=== PATIENT | female | born 1980 | race Caucasian/White ===

== ENCOUNTER 2018-01-18 10:06 | Emergency (ER) | payer MEDICAID ==
[2018-01-18 10:46] VITALS: BP 148/74
--- NOTE | 2018-01-18 10:59 | EDM.PDOC ---
ED HPI GENERAL MEDICAL PROBLEM - General Chief Complaint: Upper Extremity Injury/Pain Stated Complaint: HURT THUMB ON LEFT HAND Time Seen by Provider: 01/18/18 10:57 Source of Information: Reports: Patient History Limitations: Reports: No Limitations - History of Present Illness INITIAL COMMENTS - FREE TEXT/NARRATIVE: 37-year-old female smashed her left thumb near the proximal interphalangeal joint between a door and a heavy object yesterday. Today she has increased bruising and pain and wants to know if it's broken. No other injury. Onset: Sudden Duration: Day(s): (1-day-old) Location: Reports: Upper Extremity, Left Severity: Moderate Associated Symptoms: Reports: No Other Symptoms - Related Data Allergies Allergy/AdvReac Type Severity Reaction Status Date / Time No Known Allergies Allergy Verified 01/18/18 10:45 Home Meds: Home Meds Amphetamine/Dextroamphetamine [Adderall] 01/18/18 [History] [place] Carbonate 01/18/18 [History] Lurasidone HCl [Latuda] 01/18/18 [History] QUEtiapine [SEROquel] 01/18/18 [History] Past Medical History Psychiatric History: Reports: Anxiety, Bipolar, Depression - Past Surgical History Female Surgical History: Reports: Section Social & Family History - Tobacco Use Smoking Status *Q: Current Every Day Smoker Years of Tobacco use: 15 Packs/Tins Daily: 0.5 Review of Systems - Review of Systems Review Of Systems: See Below Constitutional: Denies: Fever Respiratory: Denies: Shortness of Breath Cardiovascular: Denies: Chest Pain GI/Abdominal: Denies: Abdominal Pain Skin: Reports: Bruising (Over the injured area) Psychiatric: Reports: No Symptoms ED EXAM, GENERAL - Physical Exam Exam: See Below Exam Limited By: No Limitations General Appearance: Alert, No Apparent Distress Respiratory/Chest: No Respiratory Distress Extremities: Other (Remainder of exam is limited to left hand. She has ecchymosis but no deformity of the left thumb, with tenderness focused around the IP joint. There is pain with movement actively. The wrist is tender to palpation along the radial aspect.) Course - Vital Signs Last Recorded V/S: Last Vital Signs Temp 97.9 F 01/18/18 10:50 Pulse 73 01/18/18 10:50 Resp 13 01/18/18 10:50 BP 148/74 H 01/18/18 10:50 Pulse Ox 100 01/18/18 10:50 - Orders/Labs/Meds Orders: Active Orders 24 hr Category Date Time Status Fingers Thumb Lt FA [CR] Stat Exams 01/18/18 10:56 Taken - Re-Assessments/Exams Free Text/Narrative Re-Assessment/Exam: 01/18/18 10:58 Left thumb x-ray was obtained. 01/18/18 11:09 X-ray was negative. Patient was placed in a thumb spica-type wrap with an Maulik wrap and encouraged to increase activity as tolerated. She can recheck in 5-7 days if not improving satisfactorily. Departure - Departure Time of Disposition: 11:17 Disposition: Home, Self-Care 01 Condition: Good Clinical Impression: Contusion of thumb, left Qualifiers: Encounter type: initial encounter Damage to nail status: without damage Qualified Code(s): S60.012A - Contusion of left thumb without damage to nail, initial encounter - Discharge Information Instructions: Contusion, [id number] Referrals: PCP,None [Primary Care Provider] - Forms: ED Department Discharge Care Plan Goals: Use Maulik wrap to immobilize thumb for the next few days while healing, then increase activity as tolerated. Ibuprofen or naproxen should help, and recheck in 5-7 days if not improving satisfactorily. - My Orders Last 24 Hours: My Active Orders 01/18/18 10:56 Fingers Thumb Lt FA [CR] Stat - Assessment/Plan Last 24 Hours: My Active Orders 01/18/18 10:56 Fingers Thumb Lt FA [CR] Stat
--- NOTE | 2018-01-19 10:17 | CR ---
Fingers Thumb Lt FA INDICATION: injury COMPARISON: None FINDINGS: 3 views. No fracture, dislocation, or other acute bony abnormality. No joint space narr owing.
== END 2018-01-18 11:17 | disposition home or self-care (01) ==
LOC: JP.ED 10:06
DX: S60.012A Contusion of left thumb without damage to nail, initial encounter (principal); F17.210 Nicotine dependence, cigarettes, uncomplicated; F41.9 Anxiety disorder, unspecified; F32.9 Major depressive disorder, single episode, unspecified; Z79.899 Other long term (current) drug therapy
CPT/HCPCS: 73140-26-FA; 73140-FA; 99284

== ENCOUNTER 2020-04-27 08:50 | Day surgery (SDC) | payer MEDICAID, OTHER ==
[2020-04-27] MEDS ORDERED: Dextrose 5%-Lactated Ringers 1,000 ML IV SCH (09:10)
[2020-04-27] MEDS ORDERED: Ampicillin/Sulbactam Na 3 GM in Sodium Chloride 0.9% 100 ML IV ONE (09:10)
[2020-04-27] MEDS ORDERED: Acetaminophen 500 MG Tab PO ONE (09:10)
[2020-04-27] MEDS ORDERED: Succinylcholine 200 MG/10 ML MDV ONE ×2 (09:29→09:31)
[2020-04-27] MEDS ORDERED: Glycopyrrolate 0.2 MG/ML 5 ML MDV ONE (09:31)
[2020-04-27] MEDS ORDERED: Dexamethasone 4 MG/ML SDV ONE (09:31)
[2020-04-27] MEDS ORDERED: Neostigmine Methylsulfate 1 MG/ML 5 ML Syringe ONE (09:31)
[2020-04-27] MEDS ORDERED: Propofol 200 MG/20 ML SDV ONE (09:31)
[2020-04-27] MEDS ORDERED: Ondansetron 4 MG/2 ML SDV ONE (09:31)
[2020-04-27] MEDS ORDERED: Rocuronium 50 MG/5 ML Vial ONE (09:31)
[2020-04-27] MEDS ORDERED: fentaNYL 250 MCG/5 ML SDV ONE ×2 (09:32→11:25)
[2020-04-27] MEDS ORDERED: Bupivacaine 0.5%/EPINEPHrine 1:200,000 50 ML MDV ONE (09:42)
[2020-04-27] MEDS ORDERED: Scopolamine 1.5 MG Transdermal Patch TOP ONE (10:45)
[2020-04-27] MEDS ORDERED: Ketamine 500 MG/5 ML MDV IV SCH (10:45)
[2020-04-27] MEDS ORDERED: Ketamine 50 MG in Sodium Chloride 0.9% 49.5 ML IV SCH (10:45)
[2020-04-27] MEDS ORDERED: Lactated Ringers 1,000 ML ONE (11:46)
[2020-04-27] MEDS ORDERED: Ondansetron 4 MG/2 ML SDV IVPUSH ONE (12:37)
[2020-04-27] MEDS ORDERED: Metoclopramide 10 MG/2 ML SDV IV PRN (13:16)
[2020-04-27] MEDS ORDERED: HYDROmorphone 0.5 MG/0.5 ML Syringe IVPUSH PRN (13:25)
[2020-04-27] MEDS ORDERED: HYDROmorphone 1 MG/ML Syringe IV PRN (13:26)
[2020-04-27] MEDS ORDERED: QUEtiapine 25 MG Tab PO PRN (13:56)
[2020-04-27] MEDS ORDERED: Ondansetron 4 MG/2 ML SDV IVPUSH PRN (14:30)
[2020-04-27] MEDS: VERIFY SCOP PATCH TOP SCH (15:09)
[2020-04-27] MEDS ORDERED: Pantoprazole 40 MG Vial IV SCH (16:00)
[2020-04-27] MEDS: Ampicillin/Sulbactam Na 3 GM in Sodium Chloride 0.9% 100 ML IV SCH (16:59)
[2020-04-27] MEDS: Dextrose 5%-Lactated Ringers 1,000 ML IV SCH (17:01)
[2020-04-27] MEDS: Acetaminophen/HYDROcodone 325-5 MG Tab PO PRN (19:11)
[2020-04-27] MEDS ORDERED: Lithium Carbonate 300 MG Tab.ER PO SCH (21:00)
[2020-04-28] MEDS: Ampicillin/Sulbactam Na 3 GM in Sodium Chloride 0.9% 100 ML IV SCH ×2 (00:24→05:18)
[2020-04-28] MEDS: Acetaminophen/HYDROcodone 325-5 MG Tab PO PRN ×2 (00:36→05:17)
[2020-04-28] MEDS: Dextrose 5%-Lactated Ringers 1,000 ML IV SCH (02:37)
[2020-04-28 07:49] VITALS: BP 139/69; PULSE 67
[2020-04-28] MEDS: VERIFY SCOP PATCH TOP SCH (08:36)
--- NOTE | 2020-04-28 18:26 | DISCH ---
ADMISSION DIAGNOSIS: Cholecystitis. DISCHARGE DIAGNOSES: 1. Diagnostic laparoscopy with cholecystectomy. 2. Pericholecystic fluid collection and abscess. POSTOPERATIVE DIAGNOSES: 1. Subacute cholecystitis and cholelithiasis. 2. Pericholecystic inflammatory fluid collection/abscess. HISTORY: Emilee Gorman is a 39-year-old female with chronic and acute cholecystitis. After preoperative evaluation and discussion of possible risks and possible complications, she wished to proceed with surgical procedure. HOSPITAL COURSE: Emilee had her surgery on 04/27/2020. She had no operative complications. On postoperative day #1, pain was controlled. Vital signs stable. Activity good and she was able to be discharged to home. PHYSICAL EXAMINATION: GENERAL: Emilee Gorman is a 39-year-old female, height is 5 feet 8 inches. Weight is 240 pounds. VITAL SIGNS: TPR is 98.6, 67, 16, blood pressure 139/69. HEENT: Negative. NECK: Supple. HEART: Regular rate and rhythm. LUNGS: Clear. ABDOMEN: Dressings dry and intact. KRISTEN drain intact draining a light pink drainage. This will be removed prior to discharge. Abdominal binder is on. EXTREMITIES: Without peripheral edema. DISPOSITION: Discharged to home. CONDITION: Stable and improving. FOLLOWUP APPOINTMENT: Jeimy Henson PA-C, at [facility] on 05/05/2020 at 9 a.m. HOME MEDICATIONS: Ucon 5/325 mg 1 tablet every 6 hours p.r.n. pain, #28; lithium 1200 mg oral daily; Latuda 30 mg oral daily; Seroquel 12.5 to 25 mg oral at bedtime. DISCHARGE INSTRUCTIONS: Diet: Regular diet as tolerated. Drink 8 to 10 glasses of water a day. No lifting more than 10 pounds for 2 weeks. Incision care: Keep operative site clean and dry. Wear abdominal binder for 2 weeks and then as tolerated. Shower bathing: May shower. Notify provider if any fever, increased pain, swelling, drainage, nausea, or vomiting. Special instruction: Use incentive spirometer 10 times every hour while awake.
--- NOTE | 2020-05-02 14:35 | OR ---
DATE OF PROCEDURE: 04/27/2020 SURGEON: Saqib Jimenez MD PREOPERATIVE DIAGNOSES: Subacute or acute cholecystitis and cholelithiasis. POSTOPERATIVE DIAGNOSES: 1. Subacute cholecystitis and cholelithiasis. 2. Pericholecystic inflammatory fluid collection/abscess. OPERATIVE PROCEDURES: Diagnostic laparoscopy with: 1. Cholecystectomy (87653). 2. Drainage of pericholecystic inflammatory fluid collection/abscess (41808). ANESTHESIA: General. THINNER SPRAYER: Jeimy Henson PA-C INDICATIONS FOR PROCEDURE: This is a 39-year-old female presenting with several-day history of right upper quadrant pain. She was worked up yesterday in walk-in clinic and found to have thick-walled gallbladder with multiple stones and quite a bit of tenderness over the gallbladder. She was seen and scheduled for laparoscopic, if necessary, open cholecystectomy at this time. Potential risks of the procedure including bleeding, infection, injury to common bile duct or other adjacent viscera, or possible migration of stones in the common bile duct requiring additional procedures for correction were gone over, and the patient wishes to proceed. DETAILS OF PROCEDURE: The patient was taken to the operating room. After general endotracheal anesthesia was induced, the abdomen was prepped and draped. Distally, right at umbilicus, a transverse incision was made, and the peritoneal cavity entered under direct vision with an Optiview trocar, inflated to 15 mmHg of CO2. Laparoscope was then reinserted. No underlying trocar insertion site injuries were seen. Following this, a 12 mm epigastric trocar and a single 5 mm right abdominal trocar were placed. As expected, the patient had a markedly edematous, thick-walled gallbladder. The picture was consistent primarily with subacute cholecystitis. As the gallbladder was lifted anteriorly, a thin purulent fluid collection was identified behind it. This was evacuated with the peritoneum in that area being locally inflamed, with areas of focal peritonitis present related to that fluid collection. The gallbladder was then retracted anteriorly and laterally. Dissection began on the gallbladder neck, continued around the gallbladder neck and cystic duct junction. This was quite thickened, and this was divided with a EMILY purple load after the adjacent cystic artery was similarly identified and was also then taken with a EMILY vascular load. Gallbladder was then dissected off the gallbladder bed. One additional vessel coming into the neck of gallbladder was hemoclipped, and the gallbladder was then placed into a specimen bag along with some of the stones that it spilled and removed through the epigastric trocar site. At this point, no further problems noted. A 10-[place] Danie-[place]in drain was taken out through the right lateral trocar site positioned in the area of the gallbladder fossa. An area over the fluid collection or abscess was located. Trocars were then sequentially removed. The fascia at the 12 mm site was closed with 0 Vicryl stitch and the skin with 4-0 Vicryl skin stitch. Dressing was applied. The patient was taken to the recovery room in satisfactory condition. Physician assistant manager retail, Jeimy Henson PA-C, played an essential role in assisting in this case, helping to position the patient as well as suturing and cutting sutures when indicated. Her presence improved patient safety and decreased operative time. Saqib Jimenez MD /[id number]
== END 2020-04-28 11:00 | disposition home or self-care (01) ==
LOC: JP.SDS 08:50 → JP.MS 12:55 → JP.SDS 04-28 11:00
PROVIDERS: ATTEND Surgery
DX: K80.12 Calculus of gallbladder with acute and chronic cholecystitis without obstruction (principal); F17.210 Nicotine dependence, cigarettes, uncomplicated; F41.9 Anxiety disorder, unspecified; Z79.899 Other long term (current) drug therapy; Z01.812 Encounter for preprocedural laboratory examination; Z20.828 Contact with and (suspected) exposure to other viral communicable diseases
CPT/HCPCS: 36415; 47562; 82247; 84075; 85027; 87635; A9270; C9113; J0171; J0295; J0330; J1100; J2405; J2704; J2710; J2765; J2795; J3010; J3490; J7050; J7120; J7121; 88304; 88312; U0002

== ENCOUNTER 2022-01-22 10:50 | Emergency (ER) | payer MEDICAID ==
[2022-01-22 12:03] VITALS: BP 174/99; PULSE 81
== END 2022-01-22 12:42 | disposition home or self-care (01) ==
LOC: JP.ED 10:50
DX: K04.7 Periapical abscess without sinus (principal); F17.210 Nicotine dependence, cigarettes, uncomplicated; Z90.49 Acquired absence of other specified parts of digestive tract; Z79.899 Other long term (current) drug therapy
CPT/HCPCS: 99282

== ENCOUNTER 2024-09-20 10:27 | Emergency (ER) | payer MEDICAID ==
[2024-09-20 11:32] VITALS: BP 153/99; PULSE 90
== END 2024-09-20 12:25 | disposition home or self-care (01) ==
LOC: JP.ED 10:27
DX: K08.89 Other specified disorders of teeth and supporting structures (principal); R22.0 Localized swelling, mass and lump, head; F17.210 Nicotine dependence, cigarettes, uncomplicated; Z79.899 Other long term (current) drug therapy
CPT/HCPCS: 99283

== ENCOUNTER 2024-10-21 08:55 | Day surgery (SDC) | payer MEDICAID ==
[2024-10-21] MEDS ORDERED: fentaNYL 100 MCG/2 ML SDV ONE (09:04)
[2024-10-21] MEDS ORDERED: Propofol 200 MG/20 ML SDV ONE ×2 (09:04→12:13)
[2024-10-21] MEDS ORDERED: Midazolam 1 MG/ML 2 ML SDV ONE (09:04)
[2024-10-21] MEDS: Lactated Ringers 1,000 ML IV SCH (09:40)
[2024-10-21 13:31] VITALS: BP 164/90; PULSE 78
== END 2024-10-21 13:41 | disposition home or self-care (01) ==
LOC: JP.SDS 08:55
PROVIDERS: ATTEND Surgery
DX: D50.9 Iron deficiency anemia, unspecified (principal); F31.9 Bipolar disorder, unspecified
CPT/HCPCS: 00813-QZ; 88305; J2250; J2704; J3010; J7120

== ENCOUNTER 2024-12-28 13:44 | Emergency (ER) | payer MEDICAID ==
[2024-12-28 13:56] VITALS: BP 180/97; PULSE 98
[2024-12-28 14:22] LABS: BASOPHILS ABSOLUTE AUTO 0.08 K/uL (0.00-0.10); BASOPHILS PERCENT AUTO 0.6 % (0.1-1.3); EOSINOPHILS ABSOLUTE AUTO 0.39 K/uL (0.00-0.40); EOSINOPHILS PERCENT AUTO 3.1 % (0.0-5.4); HEMATOCRIT 37.4 % (34.3-46.0); HEMOGLOBIN 11.1 g/dL (11.2-15.5); IMMATURE GRAN ABSOLUTE AUTO 0.05 K/uL (0.00-0.23); IMMATURE GRAN PERCENT AUTO 0.4 % (0.0-0.7); LYMPHOCYTES ABSOLUTE AUTO 3.09 K/uL (0.8-3.3); LYMPHOCYTES PERCENT AUTO 24.8 % (11.4-47.7); MEAN CORPUSCULAR HGB CONC 29.7 g/dL (31.6-35.5); MEAN CORPUSCULAR VOLUME 77.6 fL (81.4-99.0); MONOCYTES ABSOLUTE AUTO 0.74 K/uL (0.20-0.90); MONOCYTES PERCENT AUTO 5.9 % (3.3-12.6); NEUTROPHILS ABSOLUTE AUTO 8.12 K/uL (1.0-7.6); NEUTROPHILS PERCENT AUTO 65.2 % (40.0-78.1); PLATELET COUNT,PLT 270 K/uL (130-375); RED BLOOD CELL COUNT 4.82 M/uL (3.77-5.24); WHITE BLOOD CELL COUNT,WBC 12.5 K/uL (3.2-11.0)
[2024-12-28] MEDS: Cyclobenzaprine 10 MG Tab PO ONE (14:31)
[2024-12-28 14:36] LABS: CALCIUM 9.8 mg/dL (8.5-10.1); EST CRCL DRUG DOSING (CG) 76.59 mL/min; POTASSIUM,K 3.4 mmol/L (3.6-5.2)
[2024-12-28 14:44] LABS: ANION GAP 11.4 mmol/L (5.0-14.0)
[2024-12-28 14:55] LABS: APPEARANCE,URINE SLIGHTLY CLOUDY (CLEAR); COLOR,URINE YELLOW (YELLOW); PH,URINE 6.5 (5.0-8.0)
[2024-12-28 14:56] LABS: AMORPHOUS SEDIMENT,URINE NOT SEEN; BACTERIA,URINE FEW; BILIRUBIN,URINE NEGATIVE (NEGATIVE); EPITHELIAL CELLS,URINE FEW; GLUCOSE,URINE NEGATIVE (NEGATIVE); KETONES,URINE NEGATIVE (NEGATIVE); LEUKOCYTE ESTERASE,URINE SMALL (NEGATIVE); MUCUS,URINE NOT SEEN; NITRITE,URINE NEGATIVE (NEGATIVE); OCCULT BLOOD,URINE SMALL (NEGATIVE); PROTEIN,URINE NEGATIVE (NEGATIVE); RBC,URINE 0-5 (0-5); UROBILINOGEN,URINE 0.2 EU/dL (0.2-1.0)
== END 2024-12-28 17:06 | disposition home or self-care (01) ==
LOC: JP.ED 13:44
DX: M54.50 Low back pain, unspecified (principal); Z86.16 Personal history of COVID-19; Z90.49 Acquired absence of other specified parts of digestive tract; Z79.899 Other long term (current) drug therapy
CPT/HCPCS: 36415; 74176; 80048; 81001; 81025; 85025; 99284; A9270

== ENCOUNTER 2025-05-18 08:28 | Emergency (ER) | payer OTHER, MEDICAID ==
[2025-05-18 08:56] VITALS: BP 175/95; PULSE 94
== END 2025-05-18 10:01 | disposition home or self-care (01) ==
LOC: JP.ED 08:28
DX: S00.03XA Contusion of scalp, initial encounter (principal); I10 Essential (primary) hypertension; Z86.16 Personal history of COVID-19; Z79.899 Other long term (current) drug therapy; Z90.49 Acquired absence of other specified parts of digestive tract; V40.5XXA Car driver injured in collision with pedestrian or animal in traffic accident, initial encounter; Y93.89 Activity, other specified
CPT/HCPCS: 70450; 73060; 73080; 99284; A9270